=== PATIENT | male | born 1945 | race Two or more races ===

== ENCOUNTER 2019-08-21 05:55 | Day surgery (SDC) | payer OTHER ==
[~2019-08-21 05:55] MED LIST: ASPIR 8181 MG PO; COZAAR25 MG PO; FORTAMET1000 MG PO; NORVASC5 MG PO; PLAVIX75 MG PO; RANEXA1000 MG; TANSULOSIN PO
[2019-08-21] MEDS ORDERED: PERCOCET 5-3251 EACH PO (12:46)
[2019-08-21] MEDS ORDERED: SURFAK240 M1 PO (12:47)
[2019-08-21] MEDS ORDERED: POLY119PG PO (12:47)
== END 2019-08-21 16:45 | disposition home or self-care (01) ==
LOC: CIR.AMB 05:55
DX: K80.10 Calculus of gallbladder with chronic cholecystitis without obstruction (principal); K43.9 Ventral hernia without obstruction or gangrene; K42.9 Umbilical hernia without obstruction or gangrene